=== PATIENT | female | born 1980 | race African-American/Black ===

== ENCOUNTER 2017-08-26 21:53 | Inpatient (IN) | payer BC ==
[2017-08-26] MEDS ORDERED: Betamet Acet/Betamet Na Ph 30 MG/5 ML VIAL ONE (22:29)
[2017-08-26] MEDS ORDERED: Lactated Ringer's 1,000 ML IV SCH (22:30)
[2017-08-26] MEDS: Betamet Acet/Betamet Na Ph 30 MG/5 ML VIAL IM SCH (22:32)
[2017-08-26] MEDS ORDERED: Magnesium Sulfate 20 gm/500 ml 20 GM/500 ML BAG ONE (22:34)
--- NOTE | 2017-08-26 22:46 | PDOC.LDHP ---
Labor and Delivery H&P Chief complaint: contractions, abdominal pain, other (acute vag bleed 30 minutes pre-arrival) HPI: 08/26/17 @ 2230: Patient of Dr Aragon (he has turned over care to OBGYN inhouse) presenting with acute vag bleed X 30 minutes. She has a full handwritten H&P in the chart. Some contractions, good FM, no LOF, no trauma, last sex 3 days ago. No headacjes. Denies issues. CS X one in past at term. No HX PTL. Current gestational age (weeks): 24 (5 days) Dating criteria: last menstrual period Grav: 3 Para: 2 (last one via CS at term, unsure indication (in [place]).) Current complications: none Abnormal US findings: Yes (HX Fibroids) Current medications: none Previous surgical history: low tranverse CS Allergies/Adverse Reactions: Allergies Allergy/AdvReac Type Severity Reaction Status Date / Time No Known Allergies Allergy Verified 08/31/13 10:43 - Physical Exam Vital signs reviewed and normal: yes General: breathing through contractions Heart: RRR Abdomen: gravid Extremeties: no edema FHT: variability present (rate 160s.) Sadorus contractions every: irregular irritability - Vaginal Exam cm dilated: 1 (moderate VB noted) Effacement: 50% Station: -1 - Assessment Assessment: 24 weeks, probably abruption. Placenta posterior, no previa note on targeted sono by me. Fetus cephalic. - Plan Plan: informed consent obtained, other (1. NICU consult 2. Sono for EFW 3. T& Screen, CMP, CBC, PT/PTT,Fibrinogen 4. IVFs 5. magSulfate for neuroprotection 6. Steroids for FLM 7. If continues to labor, we may consider trial of due to EGA and fibroid HX. CSection for persistant heavy VB and/or compromise. 8. Anesthesia consult.)
[2017-08-26 22:49] LABS: #Basophils 0.1 thou/uL (0.0-0.2); #Eosinphils 0.4 thou/uL (0.0-0.7); #Lymphocytes 1.8 thou/uL (1.20-3.40); #Monocytes 0.9 thou/uL (0.11-0.59); #Neutrophils 9.7 thou/uL (1.40-6.50); %Basophils 0.5 % (0.0-1.0); %Eosinophils 2.8 % (0.0-10.0); %Lymphocytes 13.8 % (21.0-51.0); %Monocytes 6.9 % (0.0-10.0); Hematocrit 31.7 % (36.0-47.0); Red Blood Cell (RBC) Count 3.76 mill/uL (4.20-5.40); White Blood Cell (WBC) Count 12.7 thou/uL (4.8-10.8)
[2017-08-26] MEDS ORDERED: Oxytocin 10 UNITS/ML VIAL ONE (23:07)
[2017-08-26] MEDS ORDERED: Ondansetron HCl/PF 4 MG/2 ML Vial ONE (23:07)
[2017-08-26] MEDS ORDERED: PHENYLEPHRINE-NS 100 MCG/ML 10 ML SYRINGE ONE ×2 (23:07→23:30)
[2017-08-26] MEDS ORDERED: Morphine PF 1 MG/ML SYR ONE (23:07)
--- NOTE | 2017-08-26 23:08 | PDOC.EVN ---
Event Note - Event Note Event Note: 08/26/17 @2305: PREOP URGENT CS: Called for active VB. Bleeding PV about 300 ml (total now about 500ml). FHTs 120s by doppler ultrasound by me at bedside. Due to heavy active VB and possible abruption, it is best to proceed with repeat CS now. I have discussed this with the patient. Camacho..SCDs..anesthesia here. Will need vertical skin incision for entry due to the VB nature. NICU aware.
[2017-08-26 23:13] LABS: ALT (SGPT) 27 U/L (8-55); AST (SGOT) 22 U/L (5-34); Alkaline Phosphatase 119 U/L (40-150); Anion Gap 11 mmol/L (10-20); BUN (Urea Nitrogen) 7 mg/dL (7.0-18.7); Bilirubin, Total 0.3 mg/dL (0.2-1.2); Calc. Creatinine Clearance 0 mL/min (70-130); Calcium 8.6 mg/dL (7.8-10.44); Carbon Dioxide 21 mmol/L (22-29); Chloride 107 mmol/L (98-107); Estimated GFR-MDRD Greater than 90; Globulin 3.3 g/dL (2.4-3.5); Protein, Total 6.5 g/dL (6.0-8.3)
[2017-08-26 23:19] LABS: PTT 33.6 SEC (22.9-36.1); Prothrombin Time 15.7 SEC (12.0-14.7)
[2017-08-26] MEDS ORDERED: Fentanyl 100 MCG/2 ML VIAL ONE (23:25)
[2017-08-26] MEDS ORDERED: ePHEDrine/0.9% NaCl/PF SYRINGE 50 mg/10 ml ONE (23:28)
[2017-08-26] MEDS ORDERED: CEFAZOLIN 1 GM VIAL ONE (23:31)
[2017-08-26] MEDS ORDERED: Ketorolac Tromethamine 30 MG/ML VIAL IVP SCH (23:45)
[2017-08-26] MEDS ORDERED: Ondansetron HCl/PF 4 MG/2 ML Vial IVP PRN ×2 (23:55)
[2017-08-26] MEDS ORDERED: HYDROmorphone 2 MG/ML VIAL SLOW IVP PRN (23:55)
[2017-08-26] MEDS ORDERED: Promethazine HCl 25 MG/ML VIAL SLOW IVP PRN (23:55)
[2017-08-26] MEDS ORDERED: Meperidine HCl/PF 25 MG/ML VIAL SLOW IVP PRN (23:55)
[2017-08-26] MEDS ORDERED: Promethazine HCl 25 MG/ML VIAL IM PRN (23:55)
[2017-08-27] MEDS ORDERED: Lanolin Ointment 7 GM TUBE TOP PRN (00:01)
[2017-08-27] MEDS ORDERED: Acetaminophen 325 MG TAB PO PRN (00:01)
[2017-08-27] MEDS ORDERED: HYDROcodone/Acetaminophen 5/325 mg Tablet PO PRN (00:01)
[2017-08-27] MEDS ORDERED: Ondansetron HCl/PF 4 MG/2 ML Vial IVP PRN ×2 (00:01→00:18)
[2017-08-27] MEDS ORDERED: Calcium Gluconate 4.6 MEQ in Sodium Chloride 0.9% 100 ML IVPB PRN (00:01)
[2017-08-27] MEDS ORDERED: Promethazine HCl 25 MG/ML VIAL IM PRN ×2 (00:06→00:18)
[2017-08-27 00:13] LABS: CO2 Tension (PaCO2) 119.7 mmHg (44.0-56.0)
[2017-08-27 00:14] LABS: pH (venous) 6.72 (7.25-7.35)
[2017-08-27] MEDS ORDERED: LR / Pitocin 40 units/1000 ml 1,000 ML ONE (00:14)
[2017-08-27] MEDS ORDERED: Magnesium Sulfate 20 gm/500 ml 20 GM/500 ML BAG IVPB SCH (00:15)
[2017-08-27] MEDS ORDERED: Magnesium Sulfate 20 GM/WATER 500 ML BAG IVPB SCH (00:15)
[2017-08-27] MEDS ORDERED: diphenhydrAMINE 50 MG/ML VIAL IVP PRN (00:18)
[2017-08-27] MEDS ORDERED: Morphine CADD 1 MG/ML CADD IVPB PRN (00:18)
[2017-08-27] MEDS ORDERED: Zolpidem Tartrate 5 MG TAB PO PRN (00:18)
[2017-08-27] MEDS ORDERED: diphenhydrAMINE 50 MG/ML VIAL IM PRN (00:18)
[2017-08-27] MEDS ORDERED: diphenhydrAMINE 25 MG CAP PO PRN (00:18)
[2017-08-27] MEDS ORDERED: Naloxone HCl 0.4 mg/ml Vial IV PRN (00:18)
[2017-08-27] MEDS ORDERED: diphenhydrAMINE 50 MG/ML VIAL IM SCH (00:20)
--- NOTE | 2017-08-27 00:21 | PDOC.EVN ---
Event Note - Event Note Event Note: Postop Note: 08/26/17 @2330: Op note dictated. Patient had eclamptic seizure in OR just after arrival to OR. MgSo4 in use. Vertical skin incision chosen. NICU present. 24 week female delivered cephalic. Rocky bleeding and clots in uterus (approx 500ml at least). We called in OR bleed loss 1000ml. Total EBL including Vag Bleed is around 1500ml conservatively, therefore, we will give 1 unit PRBCs in Rec Room. Umbilical AB.69 with BE -23, implying metabolic acidosis. Assessment: Acute abruption. Eclampsia. Plan: 1. 1 unit PRBC for now 2. PT/PTT, fibrinogen were normal on arrival 3. MgSo4 to continue 4. NICU follow up...suspect child to be transferred. 5. Follow UOP. 6. Family briefed on the status of the mother and child.
[2017-08-27] MEDS ORDERED: Communication Order-Pharmacy FS SCH (00:30)
--- NOTE | 2017-08-27 00:44 | PDOC.EVN ---
Event Note - Event Note Event Note: 08/26/17 @0030: I discussed with the (who is away on business) the situation of eclampsia, and abruption. I informed him on the phone (the daughter had called him) of the desire to give blood to her. Baby is being transferred to [facility]. Zmax 500mg IV X 1 ordered for the patient in addition to the Ancef.
[2017-08-27] MEDS ORDERED: Azithromycin 500 MG in Sodium Chloride 0.9% 250 ML 250 ML IVPB SCH (00:45)
[2017-08-27] MEDS ORDERED: Morphine CADD 100 ML ONE (01:00)
--- NOTE | 2017-08-27 01:08 | PDOC.EVN ---
Event Note - Event Note Event Note: 08/27/17 @0100: Patient resting. Not postictal.
[2017-08-27 01:41] VITALS: BMI 27.8
--- NOTE | 2017-08-27 03:08 | PDOC.EVN ---
Event Note - Event Note Event Note: 08/27/17 @ 0300: Called to assess patient for decreased UOP in LDR 6. Last UOP per the hour was 30ml. Urine was initially clear right after surgery and now appears brownish ( [place]) colored. BP is 120/90, pulse 101. I suspect hemoconcentration. I have ordred IVF bolus at 500ml for now. 1 unit PRBCs has been given with repeat labs at 0900 pending. MGSO4 in use. Follow uop for now. Patient A&O and viewing the at bedside prior to baby transport.
[2017-08-27] MEDS ORDERED: Lactated Ringer's 500 ML IV SCH (03:15)
--- NOTE | 2017-08-27 04:50 | OP ---
DATE OF PROCEDURE: 08/26/2017 TIME: 2355. PREOPERATIVE DIAGNOSES: 1. Eclamptic seizure. 2. 24-week gestation and 5 days. 3. Overt/gross placenta abruption. POSTOPERATIVE DIAGNOSES: 1. Eclamptic seizure. 2. Status post . PROCEDURE: Repeat low transverse via vertical skin incision. SURGEON: Héctor Wiess M.D. DESIGN MAINTENANCE ENGINEER: Dr. Diaz. ANESTHESIA: General endotracheal anesthesia. ANTIBIOTICS: 1. Ancef given perioperatively. 2. IV magnesium sulfate in use during the . ESTIMATED BLOOD LOSS: 1000 mL in OR (the majority of this blood loss was from blood clots and blood in the uterus noted after hysterotomy). Total blood loss is approximately 1500 mL including the vagi nal bleeding, which occurred in LDR #5. URINE OUTPUT: By Camacho catheter, see record. IV FLUIDS: Approximately 1800 mL crystalloid. FINDINGS: 1. Upon entry into the hysterotomy, nic bleeding and clots were expressed about 500 mL total. 2. Baby was in a cephalic presentation. 3. NICU present for delivery. 4. Apgars not recorded, they are a part of the recess record. 5. female. 6. No intra-abdominal pelvic ascites noted. 7. Hemostasis post repair. 8. Hemostatic agents used: One strip of Surgicel was placed over the closed hysterotomy, which was in the low transverse fashion. PATHOLOGY: Placenta. CORD GAS: A cord gas was sent. COMPLICATIONS: Excessive blood loss due to the abruption. Uterine atony was not a factor. COUNTS: Correct. PATHOLOGY: The placenta as previously dictated. DISPOSITION: To recovery room extubated. TECHNIQUE: As the patient arrived to the L and D operating room, the patient was noted to have an ec lamptic seizure. This lasted for approximately 20-30 seconds. Magnesium sulfate was in use. She wa s already on the OR table when this happened. After stabilizing the patient and after intubating, ve rtical skin incision was made after the abdomen was prepped and draped in the usual sterile fashion. Incision was made at 23:17 with baby delivery at 23:20. It is important to note that dissection was carried down until at the level of fascia, which was entered in a vertical manner. An Uriah retrac tor was placed into the wound for retraction and visualization. A low transverse hysterotomy was mad e with the scalpel and upon entry into the uterine cavity, copious blood clots and nic bleeding wer e noted. Baby was delivered after the bag of water was ruptured in the cephalic presentation. Cord was doubly clamped, transected, and the baby was handed to the NICU team, who was present for intubat ion. After the baby was delivered, the placenta was removed from the uterine cavity and sent to path ology. Curettage of the uterine cavity revealed absence of retained tissue or clots. Uterus was basil sed in a single layer of #1 Vicryl in a running locking fashion. The left angle was given another he mostatic stitch with a [id number] suture. A single layer of Surgicel was placed over the closed hysterotomy for added hemostasis. The uterus was left in situ for repair. The Uriah retractor was left in situ during the hysterotomy closure. After confirming hemostasis, the Uriah retractor was removed. All counts were noted to be correct. The Surgicel was noted to be in place, hemostasis was once again assured, and the fascia was then closed with 0 PDS suture in a running nonlocking fashion with 2 sutures used to close the vertical incision. Subcutaneous tissue was then copiously irrigate d and closed with 3-0 plain gut. The skin was closed with fernando in the usual manner. The patient was transported to recovery room where she will have 1 unit of packed red blood cells due to the tota l blood loss of about 1500 mL by conservative measure, which included the blood loss and LDR 5. Due to the acute and heavy nature of the abruption, we felt that given 1 unit of packed red blood cells w as necessary, she would require blood likely later on. Her preoperative hematocrit value was 31. We will continue the magnesium sulfate in Labor and Delivery as well.
--- NOTE | 2017-08-27 07:58 | PDOC.EVN ---
Event Note - Event Note Event Note: 08/27/17 @ 0754: Postop Day 0 (9 hours): S. Patient A&O, aware of events that occurred. Baby is stable and started cooling process in [facility]. They have called and talked with her. She is resting. No HAs. O. BPs 120/80s pulse 80s-90s. UOP improved after IVF bolus earlier. Mag at 1gram /Hour. Dressing on incision--blood tinged at bottom. 0900 labs pending. Assessment: 1. S/P eclampsia 2. 24 week delivery 3. Abruption Plan: 1. Continue MgSo4 2. Check labs at 0900- CBC, PT/PTT,fibrinogen, CMP. Prior fibriogen was slighly low. 3. Camacho 4. Follow I/O. 5. SCDs in use
[2017-08-27] MEDS ORDERED: Fentanyl 100 MCG/2 ML VIAL ONE (08:02)
[2017-08-27] MEDS ORDERED: FLU VACC QS2017-18 36 mo. & older 0.5 ML SYRINGE IM ONE (09:00)
[2017-08-27] MEDS ORDERED: Adacel (T-DAP) 0.5 ML VIAL IM ONE (09:00)
[2017-08-27 09:16] LABS: PTT 26.7 SEC (22.9-36.1); Prothrombin Time 15.6 SEC (12.0-14.7)
[2017-08-27 11:01] LABS: Hematocrit 27.8 % (36.0-47.0); Mean Platelet Volume 8.9 fL (7.4-10.4); Red Blood Cell (RBC) Count 3.07 mill/uL (4.20-5.40); White Blood Cell (WBC) Count 30.2 thou/uL (4.8-10.8)
[2017-08-27 11:21] LABS: ALT (SGPT) 27 U/L (8-55); AST (SGOT) 28 U/L (5-34); Alkaline Phosphatase 92 U/L (40-150); Anion Gap 13 mmol/L (10-20); BUN (Urea Nitrogen) 8 mg/dL (7.0-18.7); Calc. Creatinine Clearance 168 mL/min (70-130); Calcium 7.2 mg/dL (7.8-10.44); Carbon Dioxide 17 mmol/L (22-29); Chloride 107 mmol/L (98-107); Estimated GFR-MDRD Greater than 90; Globulin 2.5 g/dL (2.4-3.5); Protein, Total 5.1 g/dL (6.0-8.3)
[2017-08-27] MEDS ORDERED: Succinylcholine Chloride 20 MG/ML 10 ml SYRINGE FS ONE (15:00)
[2017-08-27] MEDS ORDERED: Propofol 200 MG/20 ML VIAL ONE (15:00)
[2017-08-27] MEDS ORDERED: Oxytocin 10 UNITS/ML VIAL ONE (15:00)
[2017-08-27] MEDS ORDERED: EPINEPHrine 1 MG/ML AMP ONE (15:00)
[2017-08-27] MEDS: Lactated Ringer's 1,000 ML IV SCH (15:15)
[2017-08-27 21:44] LABS: Hematocrit 20.2 % (36.0-47.0); Mean Platelet Volume 8.8 fL (7.4-10.4); Red Blood Cell (RBC) Count 2.28 mill/uL (4.20-5.40); White Blood Cell (WBC) Count 30.4 thou/uL (4.8-10.8)
[2017-08-27] MEDS: Ibuprofen 800 MG TAB PO SCH ×2 (22:35→22:36)
[2017-08-27] MEDS: Ferrous Sulfate 325 MG TAB PO SCH ×2 (22:36→22:37)
[2017-08-27] MEDS: Prenatal Vitamin 1 TAB PO SCH (22:37)
[2017-08-28] MEDS ORDERED: HYDROcodone/Acetaminophen 5/325 mg Tablet PO PRN ×2 (02:38)
[2017-08-28 06:03] LABS: Hematocrit 18.9 % (36.0-47.0); Mean Platelet Volume 8.9 fL (7.4-10.4); Red Blood Cell (RBC) Count 2.16 mill/uL (4.20-5.40); White Blood Cell (WBC) Count 26.3 thou/uL (4.8-10.8)
--- NOTE | 2017-08-28 07:34 | PRG ---
DATE OF SERVICE: 08/28/2017 HISTORY OF PRESENT ILLNESS: The patient is postoperative day #2 status post a primary for acute abruption complicated by an eclamptic seizure. The patient has now been off magnesium for 7 ho urs. The patient denies any headache, dizziness, chest pain, shortness of breath. Camacho catheter is still in place. The patient has not been up to ambulate since the magnesium has been turned off. S he is tolerating a diet. PHYSICAL EXAMINATION: VITAL SIGNS: Blood pressure is 151/75, heart rate of 97, respiratory rate 16, satting 97% on room ai r, temperature 98.4. GENERAL: She appears to be in no acute distress. She is alert and oriented, and cooperative and ple asant to interact with. HEAD: Normocephalic, atraumatic. EXTREMITIES: The incision is vertical and has been recovered, was very minimal staining on the under lying cover. She has quite a bit of edema in all of her extremities. LABORATORY STUDIES: Urine output has picked up over the last 12 hours, urine output now over 100-200 mL an hour, total output over the last 24 hour is 2300 mL with total input of 1600 mL. Blood count this morning was drawn. Her white count is 26,000, her hemoglobin 6.4, hematocrit 18.9 and her plate lets 119,000. This is down from 6.7 yesterday, and platelets of 123,000 with a white count of 30,000 . Her starting hemoglobin is 10.6, hematocrit 31.7, platelets 135,000. ASSESSMENT AND PLAN: The patient is a 37-year-old female postoperative day #2 status post an emergen cy for acute abruption complicated by an eclamptic seizure. Patient has had a total of 1 u nit of packed red blood cells. She is having good urine output now and blood pressures have remained in the mild range. Patient has no symptomatic anemia at this time, though she does have hemoglobin that is significantly lower than her starting hemoglobin upon arrival. I have communicated to the elias andrade to let us know how she feels when ambulating and getting about, if she feels lightheaded, dizzy , chest pain, shortness of breath. It would do good to give her another unit of blood. If she is wi thout symptoms, since she is otherwise young and healthy, it would not be necessary. We will await t he patient's response after ambulation. We will continue postoperative care.
[2017-08-28] MEDS ORDERED: Ondansetron HCl/PF 4 MG/2 ML Vial IVP PRN (09:14)
[2017-08-28] MEDS ORDERED: Adacel (T-DAP) 0.5 ML VIAL IM ONE (09:14)
[2017-08-28] MEDS ORDERED: Lanolin Ointment 7 GM TUBE TOP PRN (09:14)
[2017-08-28] MEDS ORDERED: Bisacodyl 10 MG SUPP PR PRN (09:14)
[2017-08-28] MEDS ORDERED: Prenatal Vitamin 1 TAB PO SCH (09:30)
[2017-08-28] MEDS ORDERED: Docusate Calcium (SURFAK) 240 MG CAP PO SCH (09:30)
[2017-08-28] MEDS ORDERED: Ferrous Sulfate 325 MG TAB PO SCH (09:30)
[2017-08-28] MEDS: HYDROcodone/Acetaminophen 5/325 mg Tablet PO PRN (10:36)
[2017-08-28 11:53] LABS: Hematocrit 18.8 % (36.0-47.0); Mean Platelet Volume 8.6 fL (7.4-10.4); Red Blood Cell (RBC) Count 2.13 mill/uL (4.20-5.40); White Blood Cell (WBC) Count 26.1 thou/uL (4.8-10.8)
--- NOTE | 2017-08-28 12:27 | PDOC.EVN ---
Event Note - Event Note Event Note: 08/28/17 at 1225: Patient check: No sxs headache or visual changes.I saw that her BP at 1040 this AM was 160 ststolic. Repeat BP now is 14/90s. Last HCT stable at 18.8. Pilse is 100-112. Camacho still in place. She is doing well. Assessment: 1. Postop Day 1-2 (this pm) 2. S/P eclampsia 3. Abruption 4. S/P 1 unit PRBC Plan: 1. Remove Camacho 2. Ambulate 3. Recheck CBC at 0300 tomorrow AM 4. Monitor BPs and treat if BPs persistently stay >160/100. 5. Although slightly tachycardic, no sxs of anemia. We will not transfuse right now as UOP ok and I do not want to potentially aggravate BP with additional blood volume. Follow.
[2017-08-28] MEDS: Ibuprofen 800 MG TAB PO SCH ×3 (14:30→17:00)
--- NOTE | 2017-08-28 14:43 | PDOC.EVN ---
Event Note - Event Note Event Note: 08/28/17 @ 1440: Second unit PRBC: I was called at 1415 for persistent tachycardia at 120s. She is still asymptomatic. Due to pulse of 120s and history of bleeding, I have ordered the second unit of PRBCs to be given. Recheck HCT at 0300. Premedication with tylenol and Benadryl ordered.
[2017-08-28] MEDS ORDERED: Acetaminophen 500 MG TAB PO SCH (14:45)
[2017-08-28] MEDS ORDERED: diphenhydrAMINE 25 MG CAP PO SCH (14:45)
[2017-08-28] MEDS: Betamet Acet/Betamet Na Ph 30 MG/5 ML VIAL IM SCH (16:56)
[2017-08-28] MEDS: Ferrous Sulfate 325 MG TAB PO SCH ×2 (16:59→17:43)
[2017-08-28] MEDS: Lactated Ringer's 1,000 ML IV SCH (16:59)
[2017-08-28] MEDS: Prenatal Vitamin 1 TAB PO SCH (16:59)
[2017-08-28] MEDS: Simethicone Chewable 80 MG TAB PO PRN (17:43)
[2017-08-28] MEDS: Docusate Calcium (SURFAK) 240 MG CAP PO SCH (21:37)
[2017-08-29] MEDS: Simethicone Chewable 80 MG TAB PO PRN (00:21)
[2017-08-29] MEDS: Ibuprofen 800 MG TAB PO SCH ×3 (00:21→17:01)
[2017-08-29 05:08] LABS: Hematocrit 18.5 % (36.0-47.0); Mean Platelet Volume 9.1 fL (7.4-10.4); Red Blood Cell (RBC) Count 2.19 mill/uL (4.20-5.40); White Blood Cell (WBC) Count 16.8 thou/uL (4.8-10.8)
--- NOTE | 2017-08-29 06:26 | PDOC.PP ---
Post Progress Note Post Day #: 2 Subjective: S. Pain well controlled. Bon po. Passing gas. No dizziness PO intake tolerated: yes Flatus: yes Ambulation: yes Vital Signs (12 hours) Temp Pulse Pulse Resp BP BP Pulse Ox 08/29/17 04:35 98.7 F 103 H 20 147/79 H 98 08/29/17 00:20 99.1 F 110 H 22 H 160/88 H 97 08/28/17 20:00 98.7 F 121 H 22 H 156/84 H 96 08/28/17 19:10 98.3 F 115 H 24 H 138/80 93 L Weight Weight 178 lb - Physical Examination General: NAD Cardiovascular: no m/r/g Abdominal: + bowel sounds, no distention ([place] in place) Extremities: negative homans (B) Skin: CS incision dry & intact Neurological: no gross focal deficits Psychiatric: A&Ox3 Result Diagrams: 08/29/17 04:41 08/27/17 09:00 Additional Labs: Post Labs Blood Type O POSITIVE 08/26/17 22:30 Hep Bs Antigen Non-Reactive S/CO (NonReactive) 08/26/17 22:44 (1) Blood transfusion during current hospitalization Code(s): [id number] - Status: Acute (2) delivery delivered Code(s): O82 - ENCOUNTER FOR DELIVERY WITHOUT INDICATION Status: Acute (3) Eclampsia Code(s): O15.9 - ECLAMPSIA, UNSPECIFIED TO TIME PERIOD Status: Acute - Assessment/Plan Plan: 1. HTN- BPs still labile. We will follow BPs today. BPs are not persistently severe, occassional 160 systolic. No BP meds at this time. 2. S/P Abruption- child doing well by report. Still in [facility]. Patient has had 2 units PRBCs with last Hct this am stable at 18.5. Pulse down now to low 100s. 3. S/P eclampsia- no focal neuro findings. A&O x 3. 4. Postop CS at 24 weeks 5 days- will be 3 days postop at 2300 tonight. Follow today with POSSIBLE discharge tomorrow if BPs stable.
[2017-08-29] MEDS: Prenatal Vitamin 1 TAB PO SCH (08:03)
[2017-08-29] MEDS: Docusate Calcium (SURFAK) 240 MG CAP PO SCH ×2 (08:03→21:49)
[2017-08-29] MEDS: Ferrous Sulfate 325 MG TAB PO SCH ×2 (08:03→16:55)
[2017-08-29] MEDS ORDERED: Labetalol 100 MG TAB PO SCH (11:30)
[2017-08-29] MEDS: HYDROcodone/Acetaminophen 5/325 mg Tablet PO PRN ×2 (14:34→20:11)
--- NOTE | 2017-08-29 16:36 | PDOC.EVN ---
Event Note - Event Note Event Note: I have reviewed the BPs for the patient and after 2 severe range BPs this morning, and was started on labetalol 200mg BID by Dr. Aragon. She has had only normal to mild range since and is asymptomatic. Will continue to monitor.
[2017-08-29] MEDS: Labetalol 100 MG TAB PO SCH (21:49)
[2017-08-30] MEDS: Ibuprofen 800 MG TAB PO SCH ×3 (00:45→16:34)
[2017-08-30 05:45] LABS: Hematocrit 17.9 % (36.0-47.0)
--- NOTE | 2017-08-30 07:50 | PDOC.PP ---
Post Progress Note Post Day #: 4 Subjective: Has a mild headache this morning, awaiting medication. Denies heavy VB, vision changes, uncontrolled pain, or other concerns. Baby doing well in [place]. PO intake tolerated: yes Flatus: yes Ambulation: yes Vital Signs (12 hours) Temp Pulse Resp BP BP Pulse Ox 08/30/17 05:05 98.2 F 101 H 20 140/86 08/30/17 00:45 98.2 F 99 20 135/73 99 08/29/17 21:49 104 H 140/84 08/29/17 20:00 98.8 F 104 H 20 140/84 100 Weight Weight 178 lb - Physical Examination General: NAD Respiratory: non-labored breathing Abdominal: lochia (normal), no distention, appropriately TTP Fundus firm & at: U-3 Skin: CS incision dry & intact, no rash Neurological: no gross focal deficits Psychiatric: A&Ox3, normal affect Result Diagrams: 08/30/17 04:39 08/27/17 09:00 Additional Labs: Post Labs Blood Type O POSITIVE 08/26/17 22:30 Hep Bs Antigen Non-Reactive S/CO (NonReactive) 08/26/17 22:44 (1) Blood transfusion during current hospitalization Code(s): [id number] - Status: Acute (2) delivery delivered Code(s): O82 - ENCOUNTER FOR DELIVERY WITHOUT INDICATION Status: Acute (3) Eclampsia Code(s): O15.9 - ECLAMPSIA, UNSPECIFIED TO TIME PERIOD Status: Acute - Assessment/Plan BPs improved after starting Labetalol 200mg BID. Will continue to monitor BPs and headache with possible d/c later this afternoon or tomorrow.
[2017-08-30] MEDS: Ferrous Sulfate 325 MG TAB PO SCH ×2 (08:08→16:34)
[2017-08-30] MEDS: Docusate Calcium (SURFAK) 240 MG CAP PO SCH ×2 (08:08→19:31)
[2017-08-30] MEDS: Prenatal Vitamin 1 TAB PO SCH (08:08)
[2017-08-30] MEDS: Labetalol 100 MG TAB PO SCH ×2 (08:08→19:29)
[2017-08-30] MEDS: HYDROcodone/Acetaminophen 5/325 mg Tablet PO PRN ×2 (08:10→20:53)
[2017-08-30 13:14] LABS: Hematocrit 18.9 % (36.0-47.0)
[2017-08-30] MEDS ORDERED: diphenhydrAMINE 25 MG CAP PO SCH (13:30)
[2017-08-30] MEDS ORDERED: Acetaminophen 325 MG TAB PO SCH (13:30)
[2017-08-31] MEDS: Ibuprofen 800 MG TAB PO SCH ×4 (05:10→20:24)
[2017-08-31] MEDS: Labetalol 100 MG TAB PO SCH ×2 (07:53→20:24)
[2017-08-31] MEDS ORDERED: NIFEdipine 10 MG CAP PO SCH (08:00)
[2017-08-31] MEDS ORDERED: Furosemide 40 MG/4 ML VIAL SLOW IVP SCH (08:00)
[2017-08-31] MEDS: Prenatal Vitamin 1 TAB PO SCH (08:18)
[2017-08-31] MEDS: Ferrous Sulfate 325 MG TAB PO SCH ×2 (08:18→17:40)
[2017-08-31] MEDS: Docusate Calcium (SURFAK) 240 MG CAP PO SCH ×2 (08:19→20:24)
--- NOTE | 2017-08-31 08:28 | PRG ---
DATE OF SERVICE: 08/31/2017 SUBJECTIVE: The patient is a 37-year-old female who is now postop day #5, status post a classical C- section for abruption complicated by an eclamptic seizure. The patient's blood pressures during this period has remained difficult to control and has remained elevated and began blood pressu re medicine yesterday. Her pressures have been difficult to control with the dose that she began. C omplicating the picture, she also was given 2 more units of packed red blood cells yesterday. The elias andrade has no symptoms this morning. Denies any headaches, is not feeling bad and is actually interes matthew in discharging home. Blood pressure over the last 24 hours have borderline severe to less severe to more severe. PHYSICAL EXAMINATION: VITAL SIGNS: Blood pressures most recently this morning was 195/113, pulse is 78, temperature 98.4, respiratory rate of 18. GENERAL: She appears to be in no acute distress. She is alert and oriented, and cooperative and ple asant to interact with. She is sitting up in her chair. HEENT: Head is normocephalic, atraumatic. EXTREMITIES: She has edema both in her lower extremities and in her hands. LABORATORY STUDIES: Hemoglobin is 8.4, hematocrit 25 after 2 more units of packed red blood cells, m aking a total of 4 since delivery. ASSESSMENT AND PLAN: The patient is a 37-year-old female postop day #5, status post a classical C-se ction at 24 weeks due to abruption and eclamptic seizure. Baby is in [place] getting treatment. Mot her continues to have elevated pressures. Today, I will be giving her 40 mg of Lasix IM and 10 mg of nifedipine now, we will continue her labetalol 200 mg twice a day and will add Procardia 30 mg XL da edilia. The Lasix should draw off the fluid that accompanied or that was transferred intravascular spac e from the blood and the nifedipine should help more acutely with her blood pressures at this time to bring the blood pressures under control here shortly and it can make continue with an acceptable ran ge. Patient really would like to go home this afternoon. We will reevaluate at that point.
[2017-08-31] MEDS ORDERED: NIFEdipine XL 30 MG TAB PO SCH (09:00)
[2017-08-31] MEDS ORDERED: Acetaminophen 500 MG TAB PO SCH (09:15)
[2017-08-31] MEDS ORDERED: Acetaminophen 325 MG TAB PO PRN (13:01)
--- NOTE | 2017-08-31 14:36 | PDOC.PP ---
Post Progress Note Post Day #: 4-5 Subjective: Feels well. Had ROBISON earlier after BP was lowered. No viual changes or vision changes. Vital Signs (12 hours) Temp Pulse Resp BP BP BP BP 08/31/17 12:05 99.2 F 96 20 08/31/17 10:55 101 H 20 124/69 08/31/17 10:15 89 132/78 08/31/17 09:20 95 114/76 08/31/17 08:56 97 119/72 08/31/17 08:19 78 195/113 H 08/31/17 07:53 78 195/113 H 08/31/17 07:45 98.8 F 78 18 08/31/17 05:18 98.4 F 77 18 158/89 H BP 08/31/17 12:05 146/81 H 08/31/17 10:55 08/31/17 10:15 08/31/17 09:20 08/31/17 08:56 08/31/17 08:19 08/31/17 07:53 08/31/17 07:45 195/113 H 08/31/17 05:18 Weight Weight 178 lb - Physical Examination General: NAD Cardiovascular: no m/r/g Extremities: negative homans (B) Skin: CS incision dry & intact Result Diagrams: 08/31/17 05:18 08/27/17 09:00 Additional Labs: Post Labs Blood Type O POSITIVE 08/30/17 13:03 Hep Bs Antigen Non-Reactive S/CO (NonReactive) 08/26/17 22:44 (1) Blood transfusion during current hospitalization Code(s): [id number] - Status: Acute (2) delivery delivered Code(s): O82 - ENCOUNTER FOR DELIVERY WITHOUT INDICATION Status: Acute (3) Eclampsia Code(s): O15.9 - ECLAMPSIA, UNSPECIFIED TO TIME PERIOD Status: Acute - Assessment/Plan Patient recieved one dose of lasix earlier this AM per Dr Carpenter, as well as one dose oral procardia. Meds now include oral procardia XL and her labetolol. BPs now controlled. Follow BPs today.
[2017-08-31] MEDS: HYDROcodone/Acetaminophen 5/325 mg Tablet PO PRN (15:12)
[2017-08-31] MEDS ORDERED: Hydrochlorothiazide 25 MG TAB PO SCH (17:30)
--- NOTE | 2017-09-01 06:22 | PDOC.PP ---
Post Progress Note Post Day #: 5-6 Subjective: No complaints. tolerating PO and ambulating. PO intake tolerated: yes Flatus: yes Vital Signs (12 hours) Temp Pulse Resp BP BP 09/01/17 01:25 98.4 F 89 17 131/88 08/31/17 20:24 91 180/105 H 08/31/17 19:10 98.4 F 97 18 180/105 H Weight Weight 178 lb - Physical Examination General: NAD Cardiovascular: no m/r/g Respiratory: clear to auscultation bilaterally Abdominal: no distention, appropriately TTP Skin: CS incision dry & intact Psychiatric: A&Ox3 Result Diagrams: 08/31/17 05:18 08/27/17 09:00 Additional Labs: Post Labs Blood Type O POSITIVE 08/30/17 13:03 Hep Bs Antigen Non-Reactive S/CO (NonReactive) 08/26/17 22:44 (1) Blood transfusion during current hospitalization Code(s): [id number] - Status: Acute (2) delivery delivered Code(s): O82 - ENCOUNTER FOR DELIVERY WITHOUT INDICATION Status: Acute (3) Eclampsia Code(s): O15.9 - ECLAMPSIA, UNSPECIFIED TO TIME PERIOD Status: Acute - Assessment/Plan Plan: Patient is postop day 5-6 today. Still with severe range BPs yesterday. 1. HTN- Dr frey has adjusted meds. Current regime is: labetolol 400mg po BID, HCTZ 25 mg po QD. Follow BPs for now. When BPs are controlled and less than 160 systolics for 1 day, we will dischrage home. 2. Anemia- Patient has received 4 units PRBCs to date. 3. Postop- no evidence ileus. Follow BPs today. Incision C/D/I. [place] out at discharge.
[2017-09-01] MEDS: Prenatal Vitamin 1 TAB PO SCH (08:02)
[2017-09-01] MEDS: Ferrous Sulfate 325 MG TAB PO SCH (08:02)
[2017-09-01] MEDS: Labetalol 100 MG TAB PO SCH (08:02)
[2017-09-01] MEDS: Docusate Calcium (SURFAK) 240 MG CAP PO SCH (08:02)
[2017-09-01] MEDS: HYDROcodone/Acetaminophen 5/325 mg Tablet PO PRN ×2 (08:04→15:06)
[2017-09-01] MEDS ORDERED: Hydrochlorothiazide 25 MG TAB PO SCH ×2 (10:00)
[2017-09-01] MEDS: Ibuprofen 800 MG TAB PO SCH (10:07)
[2017-09-01 11:10] VITALS: TEMP 98.8
[2017-09-01 14:00] VITALS: BP 143/93
== END 2017-09-01 15:20 | disposition home or self-care (01) | DRG 765 ==
LOC: L&D/OP 21:53 → L&D 23:28 → 3SW 08-28 08:22
PROVIDERS: ADMIT Obstetrics & Gynecology; ATTEND Obstetrics & Gynecology
PROC: 10D00Z1 Extraction of Products of Conception, Low, Open Approach (ICD-10-PCS; principal; 2017-08-26)
PROC: 30233N1 Transfusion of Nonautologous Red Blood Cells into Peripheral Vein, Percutaneous Approach (ICD-10-PCS; 2017-08-27)
DX: O45.93 Premature separation of placenta, unspecified, third trimester (principal); O15.1 Eclampsia complicating labor; Z37.0 Single live birth; Z3A.24 24 weeks gestation of pregnancy; D64.9 Anemia, unspecified; D25.9 Leiomyoma of uterus, unspecified
CPT/HCPCS: 36415; 36430; 76815; 80053; 82805; 85014; 85018; 85025; 85027; 85384; 85610; 85730; 86780; 86850; 86900; 86901; 87340; 87389; A4216; J0171; J0456; J0690; J0702; J1940; J2274; J2405; J2590; J2704; J3010; J3475; J7050; P9016

== ENCOUNTER 2018-12-28 01:06 | Emergency (ER) | payer BC, OTHER ==
[2018-12-28 01:45] LABS: #Basophils 0.1 thou/uL (0.0-0.2); #Eosinphils 0.5 thou/uL (0.0-0.7); #Lymphocytes 2.2 thou/uL (1.20-3.40); #Monocytes 0.6 thou/uL (0.11-0.59); %Basophils 1.3 % (0.0-1.0); %Eosinophils 6.6 % (0.0-10.0); %Lymphocytes 30.3 % (21.0-51.0); %Monocytes 8.2 % (0.0-10.0); %Neutrophils 53.7 % (42.0-75.0); Hemoglobin 13.5 g/dL (12.0-16.0); Mean Corpuscular HGB CONC 34.4 g/dL (32.0-36.0); Mean Corpuscular Hemoglobin 29.7 pg (27.0-31.0); Mean Corpuscular Volume 86.3 fL (78.0-98.0); Mean Platelet Volume 8.9 fL (7.4-10.4); Platelet Count 163 thou/uL (130-400); RBC Distribution Width 11.6 % (11.5-14.5); Red Blood Cell (RBC) Count 4.54 mill/uL (4.20-5.40); White Blood Cell (WBC) Count 7.4 thou/uL (4.8-10.8)
[2018-12-28 02:01] LABS: ALT (SGPT) 35 U/L (8-55); AST (SGOT) 27 U/L (5-34); Albumin 4.3 g/dL (3.5-5.0); Alkaline Phosphatase 115 U/L (40-150); Anion Gap 12 mmol/L (10-20); BUN (Urea Nitrogen) 8 mg/dL (7.0-18.7); Bilirubin, Total 0.4 mg/dL (0.2-1.2); CK (CPK) 126 U/L (29-168); Calc. Creatinine Clearance 0 mL/min (70-130); Calcium 10.2 mg/dL (7.8-10.44); Carbon Dioxide 23 mmol/L (22-29); Chloride 106 mmol/L (98-107); Estimated GFR-MDRD Greater than 90; Globulin 3.3 g/dL (2.4-3.5); Glucose 136 mg/dL (70-105); Potassium 3.3 mmol/L (3.5-5.1); Protein, Total 7.6 g/dL (6.0-8.3); Sodium 138 mmol/L (136-145)
[2018-12-28] MEDS ORDERED: Ondansetron PF 4 MG/2 ML Vial IVP PRN (02:47)
[2018-12-28] MEDS ORDERED: Acetaminophen 325 MG TAB PO PRN (02:47)
[2018-12-28] MEDS ORDERED: HYDROcodone/Acetaminophen 7.5/325 mg Tablet PO PRN (02:47)
[2018-12-28] MEDS ORDERED: cloNIDine 0.1 MG TAB PO PRN (02:47)
[2018-12-28] MEDS ORDERED: Potassium Chloride 20 MEQ TAB PO SCH (03:00)
--- NOTE | 2018-12-28 03:01 | PDOC.EVN ---
Event Note - Event Note Event Note: H&P #[id number]
[2018-12-28] MEDS ORDERED: Nitroglycerin 2% Ointment 1 INCH/1 GM Packet ONE (03:15)
[2018-12-28 03:36] LABS: Bilirubin Negative (Negative); Blood, Urine Negative (Negative); Clarity CLEAR (Clear); Glucose, Urine (Dipstick) Negative (Negative); Leukocyte Negative (Negative); Nitrite Negative (Negative); Protein, Urine (Dipstick) Negative (Neg-Trace); Specific Gravity, Urine 1.005 (1.002-1.036); Urobilinogen 0.2 mg/dL (0.2-1.0); pH, Urine 7.5 (5.0-9.0)
[2018-12-28 03:37] LABS: Pregnancy Test - Urine (BHCG) Negative (Negative); Pregu Control Background? CLEAR/WHITE (CLR/WHITE); Pregu Control Bar Appear? YES (CONTROL BAR); Specific Gravity 1.005 (1.002-1.036)
[2018-12-28 03:56] LABS: Medtox Reader # READER 4
[2018-12-28 03:57] LABS: Amphetamine Not Detected (NotDetected); Barbiturates Screen Not Detected (NotDetected); Benzodiazepine Screen Not Detected (NotDetected); Cocaine Metabolite Screen Not Detected (NotDetected); Medtox Control Line Valid? VALID (VALID); Methadone Not Detected (NotDetected); Methamphetamine Not Detected (NotDetected); Opiate Screen Not Detected (NotDetected); Oxycodone Screen Not Detected (NotDetected); Phencyclidine (PCP) Not Detected (NotDetected); THC/Cannabinoid Screen Not Detected (NotDetected); Tricyclic Screen Not Detected (NotDetected)
--- NOTE | 2018-12-28 04:40 | HP ---
CHIEF COMPLAINT: Dizziness and blurriness. HISTORY OF PRESENT ILLNESS: This is a 38-year-old female who presented to the ER complaining of headache, blurriness, and dizziness. Stated that the onset was earlier this morning. She has had this symptom once in the past a long time ago, however, has been doing fine recently. She was also noted to have severely elevated hypertension, systolic blood pressure were ranging in the upper 190s to 200s. At point in time of evaluation, blood pressure is in 140s. The patient states that her symptoms have also improved by the time that she was evaluated. The patient states that she did not have any alleviating or aggravating factors. Did not have any other associated complaints that she noted. The patient stated that she felt better after her blood pressure was a little bit decreased. The patient is seen and examined in the ER. All questions were answered. REVIEW OF SYSTEMS: All systems reviewed. Pertinent positives in HPI. HOME MEDICATIONS: See MAR. PAST MEDICAL HISTORY: Hypertension and iron deficiency anemia. FAMILY HISTORY: Hypertension. SOCIAL HISTORY: Social drinker. Nonsmoker. PHYSICAL EXAMINATION: VITAL SIGNS: Blood pressure 140/90, respiratory rate 18, pulse of 85, and O2 saturation 99% on room air. GENERAL: The patient is lying in bed comfortably, in no acute distress. HEENT: Pupils are equal, round, and reactive to light and accommodation. No jaundice, icteric noticed. Oral cavity moist and pink. NECK: Supple. Mobile and nontender thyroid noted. RESPIRATORY: Clear to auscultation bilaterally. No rales or rhonchi appreciated. CARDIOVASCULAR: Regular rate and rhythm. S1 and S2. No murmurs, rubs, or gallops appreciated. ABDOMEN: Nontender, soft. Positive bowel sounds. LABORATORY DATA: CBC within normal limits. BMP, potassium 3.3, otherwise normal. CT scan of the head is normal. ASSESSMENT: 1. Transient ischemic attack, rule out cerebrovascular accident. 2. Dizziness. 3. Headache. 4. Lightheadedness. 5. Hypertension. PLAN: At this point in time, we will resume home medications. We will provide with clonidine 0.1 p.r.n. for systolic blood pressure above 170. We will also obtain an MRI. The patient wishes to remain a full code. We will also check her TSH and trend her troponins and cardiac enzymes. Get an MRI of the brain as mentioned earlier. Further workup to be determined as the patient's condition progresses. Case and plan discussed with the patient at length. She understood and agreed with this plan. Job ID: [id number]
[2018-12-28] MEDS ORDERED: Acetaminophen 325 MG TAB ONE (06:40)
[2018-12-28] MEDS ORDERED: Ferrous Sulfate 325 MG TAB PO SCH (08:00)
[2018-12-28 08:01] LABS: #Basophils 0.1 thou/uL (0.0-0.2); #Eosinphils 0.5 thou/uL (0.0-0.7); #Lymphocytes 2.1 thou/uL (1.20-3.40); #Monocytes 0.5 thou/uL (0.11-0.59); #Neutrophils 3.4 thou/uL (1.40-6.50); %Basophils 1.5 % (0.0-1.0); %Eosinophils 7.4 % (0.0-10.0); %Lymphocytes 31.7 % (21.0-51.0); %Monocytes 7.7 % (0.0-10.0); %Neutrophils 51.7 % (42.0-75.0); Hemoglobin 13.5 g/dL (12.0-16.0); Mean Corpuscular HGB CONC 33.8 g/dL (32.0-36.0); Mean Corpuscular Hemoglobin 28.9 pg (27.0-31.0); Mean Corpuscular Volume 85.4 fL (78.0-98.0); Mean Platelet Volume 9.1 fL (7.4-10.4); Platelet Count 182 thou/uL (130-400); RBC Distribution Width 11.6 % (11.5-14.5); Red Blood Cell (RBC) Count 4.69 mill/uL (4.20-5.40); White Blood Cell (WBC) Count 6.6 thou/uL (4.8-10.8)
[2018-12-28 08:19] LABS: Anion Gap 9 mmol/L (10-20); BUN (Urea Nitrogen) 5 mg/dL (7.0-18.7); Calc. Creatinine Clearance 0 mL/min (70-130); Calcium 9.5 mg/dL (7.8-10.44); Carbon Dioxide 25 mmol/L (22-29); Chloride 107 mmol/L (98-107); Estimated GFR-MDRD Greater than 90; Glucose 95 mg/dL (70-105); Potassium 4.3 mmol/L (3.5-5.1); Sodium 137 mmol/L (136-145)
[2018-12-28] MEDS ORDERED: Aspirin Chewable 81 MG TAB ONE (08:22)
[2018-12-28] MEDS ORDERED: Enoxaparin Sodium 40 MG/0.4 ML SYRINGE ONE (08:22)
[2018-12-28 08:24] LABS: Troponin I Less than 0.010 ng/mL (< 0.028)
--- NOTE | 2018-12-28 08:38 | CT ---
PRELIMINARY REPORT/[facility]/EMERGENTY AFTER-HOURS PROCEDURE CT Head Without Contrast EXAM DATE/TIME: 12/28/2018 1:44 AM CLINICAL HISTORY: 38 years old, female; Signs and symptoms; Dizziness; Patient HX: Patient reports headache and blurry vision. Denies any unilateral weakness, slurred speech or any other stroke like symptoms TECHNIQUE: Axial computed tomography images of the head/brain without contrast. COMPARISON: No relevant prior studies available. FINDINGS: Brain: No brain edema. No intracranial hemorrhage. Ventricles: Normal. No ventriculomegaly. Bones/joints: Unremarkable. No acute fracture. Sinuses: Partial opacification of the ethmoid and frontal sinuses with right frontal sinus fluid leve l, compatible with sinusitis. Mastoid air cells: Visualized mastoid air cells are unremarkable. No mastoid effusion. Soft tissues: Unremarkable. IMPRESSION: 1. Sinusitis 2. No acute brain findings. Thank you for allowing us to participate in the care of your patient. Dictated and Authenticated by: Cyrus Lopez MD 12/28/2018 2:53 AM Central Time ([place] & [place]) FINAL REPORT HEAD CT WITHOUT CONTRAST: HISTORY: Headache. Dizziness. Hypertension. Blurred vision. COMPARISON: None. FINDINGS: This report is in agreement with the preliminary report by [facility]. No acute intracranial process. Ther e is mucosal thickening in the visualized paranasal sinuses. POS: [facility]
[2018-12-28] MEDS ORDERED: Aspirin 81 mg Enteric Coated Tablet PO SCH (09:00)
[2018-12-28] MEDS ORDERED: Hydrochlorothiazide 25 MG TAB PO SCH (09:00)
[2018-12-28] MEDS ORDERED: Labetalol 100 MG TAB PO SCH (09:00)
[2018-12-28] MEDS ORDERED: Enoxaparin Sodium 40 MG/0.4 ML SYRINGE SC SCH (09:00)
--- NOTE | 2018-12-28 09:53 | MRI ---
BRAIN MRI NONCONTRAST: COMPARISON: Reference is made to head CT earlier same day. INDICATION: History of headache with dizziness, elevated blood pressure, and blurry vision. FINDINGS: There is normal size of the ventricular system. No midline shift. No significant parenchymal signal abnormalities of the brain. Skull base flow voids are maintained. There is scattered paranasal sin us mucosal thickening. IMPRESSION: No acute territorial infarction or intracranial mass effect. POS: [facility]
[2018-12-28] MEDS ORDERED: Ibuprofen 200 MG TAB ONE (11:41)
[2018-12-28] MEDS ORDERED: Ibuprofen 200 MG TAB PO SCH (11:45)
--- NOTE | 2018-12-28 12:16 | DIS ---
DATE OF ADMISSION: 12/28/2018 DATE OF DISCHARGE: 12/28/2018 DISCHARGE DISPOSITION: Home. FOLLOW UP: With primary care physician at [facility] in 1 week. INSTRUCTIONS: Basic metabolic profile after 2 weeks is recommended. Primary care physician advised to follow. ALLERGIES: NO KNOWN DRUG ALLERGIES. DISCHARGE MEDICATION: 1. Atenolol 25 mg daily. 2. Hydrochlorothiazide 25 mg daily. HISTORY OF PRESENT ILLNESS: The patient was seen and examined on the day of discharge. Denies any new complaints. No chest pain, shortness of breath or palpitations reported. BRIEF HOSPITAL COURSE: The patient is a 38-year-old female with hypertension, currently not on any antihypertensives, presented to the hospital with dizziness and blurriness of vision. She was found to have blood pressure in 190s to 200s on ER arrival. She improved with nitroglycerin patch. An MRI of the brain was ordered on admission, which was negative for acute findings. Her symptoms were probably secondary to uncontrolled blood pressure. She was advised to monitor her blood pressure on a daily basis and to maintain a log. She also had potassium of 3.3 on admission and at discharge, is 4.3. Repeat basic metabolic profile after 1 to 2 weeks is recommended. Primary care physician advised to follow. Plan of care was discussed with the patient in detail. She stated understanding. Blood pressure at the time of discharge is 126/78. FINAL DIAGNOSIS: 1. Blurriness of vision with dizziness and headaches secondary to uncontrolled blood pressure. 2. Hypertensive urgency. 3. Hypokalemia, corrected. 4. History of hypertension. 5. Medication noncompliance. 6. Chronic anemia. Plan of care was discussed with the patient in detail. She stated understanding. Please note that her symptoms are not consistent with TIA. For this reason, I did not start any antiplatelet agent. She was advised to seek medical attention, if she develops any stroke-like symptoms. She was extensively counseled on blood pressure and low-sodium diet. She appears stable for discharge. Job ID: [id number]
[2018-12-28 13:14] VITALS: BP 135/80
--- NOTE | 2019-01-01 18:46 | EKG ---
Test Reason : Blood Pressure : / mmHG Vent. Rate : 075 BPM Atrial Rate : 075 BPM P-R Int : 168 ms QRS Dur : 092 ms QT Int : 378 ms P-R-T Axes : 046 017 018 degrees QTc Int : 422 ms Normal sinus rhythm Left atrial enlargement Left ventricular hypertrophy Nonspecific T wave abnormality Abnormal ECG Confirmed by KUMAR HUGHES, HERNAN Menchaca ([id number]), videotape editor KUMAR SULLIVAN ([id number]) on 01/01/2019 6:45:57 PM Referred By: Confirmed By:HERNAN HEATH MD
== END 2018-12-28 11:59 | disposition home or self-care (01) ==
LOC: ERS 01:06 → UNDOADMOB 02:43 → ERHOLD 02:43 → 2SW 11:39 → UNDODISOB 12:17
DX: R42 Dizziness and giddiness (principal); R51 Headache; I10 Essential (primary) hypertension; D50.9 Iron deficiency anemia, unspecified; I16.0 Hypertensive urgency; E87.6 Hypokalemia; Z91.14 Patient's other noncompliance with medication regimen
CPT/HCPCS: 36415; 70450; 70551; 80053; 80306; 81003; 81025; 82550; 84443; 84484; 85025; 93005; G0378; J1650